=== PATIENT | female | born 1975 | race Caucasian/White ===

== ENCOUNTER 2017-09-02 06:11 | Day surgery (SDC) | payer SELFPAY ==
[2017-08-27 12:03] VITALS: BMI 24.7
[2017-09-02] MEDS ORDERED: HEPARIN NA (PORCINE) 5,000 UNITS/ML 1ML VIAL ONE (06:38)
[2017-09-02] MEDS ORDERED: ePHEDrine SULFATE 50 MG/1 ML AMPULE ONE (07:00)
[2017-09-02] MEDS ORDERED: ONDANSETRON 4 MG/2 ML VIAL ONE (07:00)
[2017-09-02] MEDS ORDERED: ceFAZolin SODIUM 1 GM VIAL ONE (07:00)
[2017-09-02] MEDS ORDERED: PHENYLEPHRINE HCL 10 MG/1 ML SINGLE DOSE VIAL ONE (07:00)
[2017-09-02] MEDS ORDERED: fentaNYL CITRATE 250 MCG/5 ML VIAL ONE (07:00)
[2017-09-02] MEDS ORDERED: DEXAMETHASONE SOD PHOSPHATE 4 MG/1 ML VIAL ONE (07:00)
[2017-09-02] MEDS ORDERED: LIDOCAINE HCL/PF 2% SDV 5ML VIAL ONE (07:00)
[2017-09-02] MEDS ORDERED: PROPOFOL 20 ML ONE ×2 (07:01)
[2017-09-02] MEDS ORDERED: SUCCINYLCHOLINE CHLORIDE 200 MG/10 ML VIAL ONE (07:01)
[2017-09-02] MEDS ORDERED: ROCURONIUM BROMIDE 50 MG/5 ML VIAL ONE ×2 (07:01)
[2017-09-02] MEDS ORDERED: MIDAZOLAM HCL 2 MG/2 ML SINGLE DOSE VIAL ONE ×2 (07:01)
[2017-09-02] MEDS ORDERED: LIDOCAINE HCL 1%, 10 MG/ML (20ML VIAL) ONE (07:19)
[2017-09-02] MEDS ORDERED: EPINEPHrine/PF 1 MG/1 ML (1:1,000) AMPULE ONE (07:20)
[2017-09-02] MEDS ORDERED: SCOPOLAMINE HYDROBROMIDE 1 PATCH PATCH.TD72 ONE (07:24)
[2017-09-02] MEDS ORDERED: ACETAMINOPHEN INJECTION 100 ML IVPB ONE (07:24)
[2017-09-02] MEDS ORDERED: BACITRACIN 15 GM TUBE TOPICAL OINTMENT ONE (07:34)
[2017-09-02] MEDS ORDERED: PROMETHAZINE HCL 25 MG/1 ML VIAL IVPUSH PRN (08:27)
[2017-09-02] MEDS ORDERED: ONDANSETRON 4 MG/2 ML VIAL IVPUSH PRN (08:27)
[2017-09-02] MEDS ORDERED: LACTATED RINGERS SOLUTION 1,000 ML IV SCH ×2 (08:30→12:30)
[2017-09-02] MEDS ORDERED: BACITRACIN 15 GM TUBE TOPICAL OINTMENT TP ONE (11:53)
[2017-09-02] MEDS ORDERED: morphine CARPU-JECT 2 MG/1 ML DISP.SYRIN IVPUSH PRN (12:22)
[2017-09-02] MEDS ORDERED: ONDANSETRON 4 MG/2 ML VIAL IVPB PRN (12:22)
--- NOTE | 2017-09-02 12:26 | OP ---
Operative Note - Note: Operative Date: 09/03/17 Pre-Operative Diagnosis: abdominal excess Operation: abdominoplasty with liposuction Post-Operative Diagnosis: Same as Pre-op Surgeon: Torin Miller Anesthesia: General Operative Report Dictated: Yes
[2017-09-03] MEDS: oxyCODONE HCL 5 MG TABLET PO PRN ×2 (04:30→09:30)
[2017-09-03] MEDS ORDERED: LEVOTHYROXINE NA 150 MCG TABLET PO SCH (07:00)
--- NOTE | 2017-09-03 07:33 | PN ---
Progress Note (short form) - Note Progress Note: all tissue viable VSS AF Ambulating OK for discharge with instructions and f/u
[2017-09-03] MEDS ORDERED: HEPARIN NA (PORCINE) 5,000 UNITS/ML 1ML VIAL SQ SCH (08:00)
[2017-09-03 10:21] VITALS: BP 120/65; PULSE 79; TEMP 98.2
--- NOTE | 2017-09-05 15:25 | PATH ---
Surgical Pathology Report Patient Name: SAFIA BERRY [facility]. Rec. #: [id number] /Age/Gender: 1975 (Age: 42) / F Account: [id number] Location: [facility] Taken: 09/02/2017 Received: 09/02/2017 Reported: 09/05/2017 Physicians: Torin Miller Specimen(s) Received ABDOMINAL SKIN AND FAT Clinical History Cosmetic Abdominoplasty and bilateral flank liposuction Final Diagnosis ABDOMINAL SKIN AND FAT, ABDOMINOPLASTY: SKIN AND ADIPOSE TISSUE, DESCRIBED (GROSS EXAMINATION ONLY). Electronically Signed Soraya Thao M.D. Gross Description Received in formalin labelled "abdominal skin and fat" is a 2126 gram aggregate of portions of skin with attached subcutaneous adipose tissue, and additional portions of uniform yellow adipose tissue. The specimen measures in aggregate 22 x 22 x 8 cm. No focal lesions are identified. This is for gross identification only. [facility]/09/03/2017 [facility]/09/03/2017
--- NOTE | 2017-09-06 08:17 | OP ---
DATE OF OPERATION: 09/02/2017 TITLE OF PROCEDURE: Abdominoplasty with bilateral flank liposuction. CURTAIN CLEANER: None. PREOPERATIVE DIAGNOSIS: Abdominal lipodystrophy. POSTOPERATIVE DIAGNOSIS: Abdominal lipodystrophy. ANESTHESIA: General endotracheal anesthesia. DESCRIPTION OF PROCEDURE: She is seen in the holding area, counseled on the risks, benefits, and alternatives to the procedure, marked standing, wide awake, aware of incisions, resulting scars. Patient is given 5000 units of subcutaneous heparin preoperatively. Sequential compression stockings, KELSI hose are applied in the holding area. She is then brought to the operating room, placed in supine position. Ancef 2 g was given. After induction of general anesthesia she is given a Jay catheter, after which Jay catheter is removed at the end of the procedure. She is prepped and draped in standard surgical fashion. A timeout was called. Patient, procedure, side, sites were verified. At this point the procedure is as follows. Incision is made along the infrapannicular crease and dissection carried down to the level of the abdominal wall fascia. Blood vessels are ligated either by suture ligation or Bovie cautery. The dissection is then carried along the abdominal wall fascia to the level of the umbilicus. The umbilicus is then circumcised and developed on a fibrofatty stalk to its base. The abdominoplasty flap is then elevated superior to the umbilicus, to the xiphoid process in the midline, costal margins bilaterally. Midline plication is performed with a series of interrupted buried [id number] 1 Prolene suture in the midline, followed by a running Prolene locking suture both above and below the umbilicus until good even tension along the abdominal wall fascia is achieved. The patient is then brought to a flexed position 15 degrees, where excess skin and fat is then marked and trimmed as needed. The flap is then inspected and is thinned subcutaneously of sub-Naif's layer fat only. Hemostasis is meticulously achieved. Wounds were copiously irrigated with normal saline. The skin is then tailor tacked to the abdominal wall without tension. The point of umbilical translocation is marked. A Star Trek pattern for umbilical translocation is made. The umbilicus is converted into a Star Trek pattern with the inferior flap on the abdominoplasty flap is then inset into the 6 o'clock notch of the umbilicus. The inset is performed with a series of interrupted buried deep dermal 3-0 Monocryl suture followed by a series of interrupted 4-0 nylon suture. Size 10 flat drains are placed through the lateral extent of the incisions. The left drain is on the inferior apex of the wound, and the right drain is on the superior apex of the wound. Drains were secured with 3-0 silk drain suture. The flanks are then infiltrated with tumescent solution. This is a liter of normal saline with 20 mL of 1% lidocaine plain, 1 ampule of 1:100,000 epinephrine. A full 20 minutes is awaited for hemostatic effect of the wetting solution while the abdominal wall closure is performed. The closure is performed with a series of interrupted Naif layer buried 2-0 Vicryl suture. Skin was then approximated with a buried dermal V-Loc 3-0 PDS suture. Prior to the final layer, liposuction is performed through the existing abdominoplasty wound using a combination of 5 and 4-mm cannulas with power assisted liposuction system; 350 mL is liposuctioned out of each flank. Endpoint is smooth, even contour. The final closure is done with a running subcuticular 3-0 Monocryl suture. Incisions were dressed with Steri-Strips. Abdominal wall binder is placed. Patient awoken from anesthesia in a flexed position, transferred to recovery without complication. Lupe [id number]
== END 2017-09-03 10:35 | disposition home or self-care (01) ==
LOC: FASU 06:11 → FM/S 12:22 → FASU 09-03 10:35
PROVIDERS: ATTEND Plastic Surgery
PROC: 0J080ZZ Alteration of Abdomen Subcutaneous Tissue and Fascia, Open Approach (ICD-10-PCS; principal; 2017-09-02 08:17)
DX: Z41.1 Encounter for cosmetic surgery (principal)
CPT/HCPCS: 84703; 88300-TC; 94010; J1644